=== PATIENT | male | born 1990 | race African-American/Black ===

== ENCOUNTER 2020-03-29 10:52 | Emergency (ER) | payer SELFPAY ==
[~2020-03-29] VITALS: Ht 185.4 cm; Wt 109.0 kg
[2020-03-29] MEDS ORDERED: LIDOCAINE 1%/EPI 1:100,000 10 ML VIAL IJ ONE (12:00)
[2020-03-29] MEDS ORDERED: IBUPROFEN 600MG TABLET PO ONE (12:00)
[2020-03-29] MEDS ORDERED: CLINDAMYCIN HCL 150MG CAPSULE PO ONE (12:00)
[2020-03-29 12:12] VITALS: BP 144/94
== END 2020-03-29 14:09 | disposition home or self-care (01) ==
LOC: ER 10:52
DX: L02.411 Cutaneous abscess of right axilla (principal)
CPT/HCPCS: 10060; 87070; 87077; 87205; 99284; J3490